=== PATIENT | female | born 1985 | race African-American/Black ===

== ENCOUNTER 2019-09-02 12:32 | Emergency (ER) | payer OTHER ==
[~2019-09-02] VITALS: Ht 162.6 cm; Wt 89.6 kg
[2019-09-02 13:20] LABS: HEMATOCRIT 39.7 % (36.0-47.0); HEMOGLOBIN 13.6 g/dl (12.0-15.5); MEAN CORPUSCULAR HGB CONC 34.3 g/dl (32.0-36.5); MEAN CORPUSCULAR VOLUME 87.4 fl (80.0-96.0); PLATELET COUNT, AUTOMATED 309 10^3/uL (150-450); RED BLOOD COUNT 4.54 10^6/uL (4.00-5.40); WHITE BLOOD COUNT 8.4 10^3/uL (4.0-10.0)
[2019-09-02 13:42] LABS: ALBUMIN 4.2 GM/DL (3.2-5.2); ALT/SGPT 24 U/L (12-78); BILIRUBIN,DIRECT < 0.1 MG/DL (0.0-0.2); BILIRUBIN,TOTAL 0.3 MG/DL (0.2-1.0); LIPASE 109 U/L (73-393); TOTAL PROTEIN 7.3 GM/DL (6.4-8.2)
[2019-09-02 15:27] LABS: CHLAMYDIA DNA AMPLIFICATION NEGATIVE (NEGATIVE); GC DNA AMPLIFICATION NEGATIVE (NEGATIVE)
--- NOTE | 2019-09-02 16:39 | REP ---
Pelvic sonography: History: Left-sided pelvic pain. Findings: Transabdominal and transvaginal scanning are performed. Uterine dimensions are normal at 9.0 x 4.7 x 5.9 cm. Endometrial stripe 0.7 cm thick. Three is mild cystic change in the lower uterine segment consistent with Nabothian cyst. No focal uterine mass is seen. Minimal free fluid is noted. Visualized bladder short are smooth. Normal ovaries are seen bilaterally. The right ovary measures by 2.1 x 2.2 x 3.2 cm. Left ovarian dimensions are 2.9 x 2.1 x 1.7 cm. Resistive indices are normal by Doppler at 0.63 on the right and 0.69 on the left. Impression: Negative pelvic sonography. Electronically Signed by Kris Hogue MD 09/02/2019 06:30 P
[2019-09-02 16:50] VITALS: BP 129/73
== END 2019-09-02 17:00 | disposition home or self-care (01) ==
LOC: M ED 12:32
DX: R10.2 Pelvic and perineal pain (principal); T38.4X5A Adverse effect of oral contraceptives, initial encounter; R11.2 Nausea with vomiting, unspecified

== ENCOUNTER 2020-05-21 08:26 | Emergency (ER) | payer OTHER ==
[~2020-05-21] VITALS: Ht 162.6 cm; Wt 90.1 kg
[2020-05-21 08:26] VITALS: BP 121/73
[2020-05-21 09:08] LABS: BASO % 0.5 % (0.0-1.0); EOS # 0.1 10^3/uL (0.0-0.5); EOS % 1.6 % (0.0-3.0); HEMATOCRIT 37.8 % (36.0-47.0); HEMOGLOBIN 12.7 g/dl (12.0-15.5); LYMPH % 32.1 % (24.0-44.0); MEAN CORPUSCULAR HEMOGLOBIN 28.9 pg (27.0-33.0); MEAN CORPUSCULAR HGB CONC 33.6 g/dl (32.0-36.5); MEAN CORPUSCULAR VOLUME 86.1 fl (80.0-96.0); MONO # 0.4 10^3/uL (0.0-0.8); MONO % 6.1 % (0.0-5.0); NEUTROPHILS # 3.8 10^3/uL (1.5-8.5); NEUTROPHILS % 59.4 % (36.0-66.0); PLATELET COUNT, AUTOMATED 277 10^3/uL (150-450); RED BLOOD COUNT 4.39 10^6/uL (4.00-5.40); WHITE BLOOD COUNT 6.4 10^3/uL (4.0-10.0)
[2020-05-21] MEDS ORDERED: BACT800T5 PO ×2 (09:20→10:15)
[2020-05-21] MEDS ORDERED: IBUP80TA PO ×2 (09:20→10:15)
== END 2020-05-21 09:24 | disposition home or self-care (01) ==
LOC: M ED 08:26
DX: L02.412 Cutaneous abscess of left axilla (principal); Z79.899 Other long term (current) drug therapy